=== PATIENT | female | born 1990 | race Caucasian/White ===

== ENCOUNTER → 2017-10-24 | Emergency (ER) | payer OTHER ==
[~2017-10-24] VITALS: Ht 154.9 cm; Wt 59.0 kg
[~2017-10-24] MED LIST: ALBUTEROL2.5 MG/3 M IH; CEFTIN500 MG PO; IOPHEN DM-100 MG/5 M PO; ZYNCOF 20-400120 ML PO
== END | disposition home or self-care (01) ==
LOC: ER 22:05
DX: J45.998 Other asthma (principal)

== ENCOUNTER 2018-05-24 09:04 | Emergency (ER) | payer OTHER ==
[~2018-05-24] VITALS: Ht 154.9 cm; Wt 64.9 kg
[2018-05-24] MEDS ORDERED: IBUPROFEN800 MG PO (12:59)
== END 2018-05-24 15:00 | disposition home or self-care (01) ==
LOC: ER 09:04
DX: S20.212A Contusion of left front wall of thorax, initial encounter (principal); S20.211A Contusion of right front wall of thorax, initial encounter; V49.9XXA Car occupant (driver) (passenger) injured in unspecified traffic accident, initial encounter; Y93.89 Activity, other specified; Y92.488 Other paved roadways as the place of occurrence of the external cause; Y99.8 Other external cause status

== ENCOUNTER 2019-10-22 13:57 | Emergency (ER) | payer OTHER ==
[~2019-10-22] VITALS: Ht 154.9 cm; Wt 79.4 kg
[~2019-10-22 13:57] MED LIST changes: +IBUPROFEN800 MG PO
== END 2019-10-22 20:03 | disposition home or self-care (01) ==
LOC: ER 13:57
DX: J45.998 Other asthma (principal)

== ENCOUNTER 2023-09-04 10:32 | Emergency (ER) | payer OTHER ==
[~2023-09-04] VITALS: Ht 157.5 cm; Wt 90.7 kg
[2023-09-04] MEDS ORDERED: PROAIR RESPICL90 MCG (11:06)
[2023-09-04 11:57] LABS: ABG PH 7.403 (7.35-7.45); ABG PO2 81.4 mmHg (80-100); BASE EXCESS -0.7 mmol/l; BICARBONATE 23.8 mmol/l (23-25); SaO2 95.9 %; allen test SATISFACTORY; puncture site RADIAL RIGHT
[2023-09-04 11:58] LABS: o2 21 %
[2023-09-04 12:40] LABS: HEMOGLOBIN 12.2 g/dL (12.0-15.00); MEAN CORPUSCULAR HEMOGLOBIN 31.2 pg (27.00-32.0); MEAN CORPUSCULAR HGB CONC 33.9 g/dl (32.0-36.0); PLATELET COUNT 294 K/uL (150-450); RED BLOOD COUNT 3.91 M/uL (4.00-6.00); RED CELL DISTRIBUTION WIDTH 13.5 % (11.5-14.5)
== END 2023-09-04 16:18 | disposition home or self-care (01) ==
LOC: ER 10:32
PROVIDERS: Emergency Medicine
DX: J45.909 Unspecified asthma, uncomplicated (principal); Z20.822 Contact with and (suspected) exposure to COVID-19

== ENCOUNTER 2023-12-17 08:54 | Emergency (ER) | payer OTHER ==
[~2023-12-17] VITALS: Ht 157.5 cm; Wt 86.2 kg
[~2023-12-17 08:54] MED LIST changes: +PROAIR RESPICL90 MCG
[2023-12-17] MEDS ORDERED: KETOROLAC TROMETHAMINE 30 MG VIAL IM ONE (09:45)
[2023-12-17] MEDS ORDERED: ORPHENADRINE CITRATE 30 MG/ML AMPUL IM ONE (09:45)
[2023-12-17] MEDS ORDERED: TRAMADOL HCL 50 MG TABLET PO ONE (09:45)
== END 2023-12-17 12:16 | disposition home or self-care (01) ==
LOC: ER 08:55
DX: M54.9 Dorsalgia, unspecified (principal)

== ENCOUNTER 2024-04-12 23:18 | Emergency (ER) | payer OTHER ==
[~2024-04-12] VITALS: Ht 157.5 cm; Wt 72.6 kg
[2024-04-12] MEDS ORDERED: 0.9 % SODIUM CHLORIDE 500 ML IV SCH (23:45)
[2024-04-12] MEDS ORDERED: ACETAMINOPHEN 500 MG GEL..CAP PO ONE (23:45)
[2024-04-13] MEDS ORDERED: ACETAMINOPHEN 500 MG GEL..CAP PO ONE (00:06)
[2024-04-13 00:42] LABS: HEMATOCRIT 35.2 % (36.0-45.00); MEAN CELL VOLUME 89.9 fL (80.00-100.00); MEAN CORPUSCULAR HEMOGLOBIN 30.6 pg (27.00-32.0); MEAN CORPUSCULAR HGB CONC 34.1 g/dl (32.0-36.0); PLATELET COUNT 261 K/uL (150-450); RED BLOOD COUNT 3.92 M/uL (4.00-6.00); RED CELL DISTRIBUTION WIDTH 13.4 % (11.5-14.5)
[2024-04-13 01:07] LABS: CALCIUM 9.1 mg/dL (8.5-10.1); CREATININE SERUM 0.83 mg/dL (0.55-1.02); GFR 79.67; POTASSIUM 3.51 mEq/L (3.5-5.1)
== END 2024-04-13 01:49 | disposition home or self-care (01) ==
LOC: ER 23:20
PROVIDERS: General Practice
DX: J06.9 Acute upper respiratory infection, unspecified (principal); Z87.09 Personal history of other diseases of the respiratory system; Z20.822 Contact with and (suspected) exposure to COVID-19

== ENCOUNTER 2025-02-26 19:00 | Emergency (ER) | payer OTHER ==
[~2025-02-26] VITALS: Ht 157.5 cm; Wt 88.9 kg
[2025-02-26] MEDS ORDERED: KETOROLAC TROMETHAMINE 30 MG VIAL IM STA (20:09)
[2025-02-26] MEDS ORDERED: CEFTRIAXONE SODIUM 1,000 MG VIAL IM STA (20:09)
[2025-02-26] MEDS ORDERED: KETOROLAC TROMETHAMINE 30 MG VIAL ONE (20:42)
[2025-02-26] MEDS ORDERED: CEFTRIAXONE SODIUM 1,000 MG VIAL ONE (20:42)
[2025-02-26] MEDS ORDERED: LIDOCAINE HCL/MPF 1% 5ML VIAL IJ ONE (20:42)
== END 2025-02-26 20:55 | disposition home or self-care (01) ==
LOC: ER 19:12
DX: J32.9 Chronic sinusitis, unspecified (principal)

== ENCOUNTER → 2025-06-24 | Emergency (ER) | payer OTHER ==
[~2025-06-24] VITALS: Ht 157.5 cm; Wt 90.7 kg
[~2025-06-24] MED LIST changes: +CEFTRIAXONE SODIUM 1,000 MG VIAL IM ONE; +CEFTRIAXONE SODIUM 1,000 MG VIAL ONE; +CEFUROXIME500 MG PO; +CHLORHEXIDINE GLUCONATE 120 ML BOTTLE TOP ONE; +KETOROLAC TROMETHAMINE 60 MG VIAL IM ONE; +PEPCID AC20 MG PO
[2025-06-24 17:42] VITALS: BP 123/70; O2SAT 99
== END | disposition home or self-care (01) ==
LOC: ER 15:47
DX: L02.416 Cutaneous abscess of left lower limb (principal); Z87.09 Personal history of other diseases of the respiratory system

== ENCOUNTER 2025-08-31 11:17 | Emergency (ER) | payer OTHER ==
[~2025-08-31] VITALS: Ht 157.5 cm; Wt 90.7 kg
[~2025-08-31 11:17] MED LIST changes: -CEFTRIAXONE SODIUM 1,000 MG VIAL IM ONE; -CEFTRIAXONE SODIUM 1,000 MG VIAL ONE; -CHLORHEXIDINE GLUCONATE 120 ML BOTTLE TOP ONE; -KETOROLAC TROMETHAMINE 60 MG VIAL IM ONE
[2025-08-31] MEDS ORDERED: METHYLPREDNISOLONE SOD SUCC 125 MG VIAL IV ONE (15:15)
[2025-08-31] MEDS ORDERED: IPRATROPIUM BROMIDE 0.5 MG/2.5 ML AMPUL.NEB IH ONE (15:15)
[2025-08-31] MEDS ORDERED: ALBUTEROL SULFATE 3 ML/2.5 MG AMPUL.NEB IH SCH (15:15)
[2025-08-31] MEDS ORDERED: 0.9 % SODIUM CHLORIDE 1,000 ML IV ONE (15:15)
[2025-08-31 15:59] LABS: BASO % 0.6 % (0.1-1.2); EOS # 0.54 (0.04-0.54); EOS % 6.5 % (0.7-7.0); LYMPH # 2.49 (1.18-3.74); LYMPH % 30.0 % (19.3-53.1); MEAN PLATELET VOLUME 9.80 fl (9.4-12.4); MONO # 0.71 (0.24-0.82); MONO % 8.6 % (4.7-12.5); NEUT # 4.45 (1.56-6.13); NEUT % 53.6 % (34.0-71.1); RED CELL DISTRIBUTION WIDTH 13.7 % (11.6-14.4)
[2025-08-31 16:01] LABS: ERYTHROCYTE SEDIMENTATION RATE 43 mm/hr (0-20)
[2025-08-31 16:26] LABS: ALT/SGPT 26.0 U/L (12-78); AST/SGOT 11.0 U/L (15-37); BILIRUBIN TOTAL 0.33 mg/dL (0.3-1.2); BUN CREA RATIO 16.0 (7.0-25.0); CREATININE SERUM 0.7 mg/dL (0.55-1.02); GFR 96.37; GLOBULINA 4.2 G/DL (2.4-3.5); GLUCOSE FASTING 82.0 mg/dL (65-100); OSMOLALITY SERUM 282.0 MOSM/KG (275-295)
[2025-08-31] MEDS ORDERED: ZITHROMAX200 MG PO (17:35)
[2025-08-31] MEDS ORDERED: BENZONATATE100 MG PO (17:35)
[2025-08-31] MEDS ORDERED: MEDROLPACK PO (17:35)
[2025-08-31] MEDS ORDERED: ALBUTEROL1.25 MG/3 IH (17:35)
== END 2025-08-31 19:16 | disposition home or self-care (01) ==
LOC: ER 11:17
DX: J45.41 Moderate persistent asthma with (acute) exacerbation (principal)